=== PATIENT | male | born 1985 | race Caucasian/White ===

== ENCOUNTER 2018-11-07 16:00 | Emergency (ER) | payer BC, MEDICAID, SELFPAY ==
[2018-11-07 18:16] VITALS: PULSE 80
--- NOTE | 2018-11-07 18:28 | ERPHSYRPT ---
- History of Present Illness Time Seen by Provider: 11/07/18 17:40 Source: patient Exam Limitations: no limitations Patient Subjective Stated Complaint: pt states he was working on a vehicle and he thinks the frame cut his r arm Triage Nursing Assessment: pt a&o x3. skin w/d/p. pt has laceration to r elbow. csm x4. bleeding controlled Physician History: 33 y/o right handed white male presents with accidental laceration to right elbow. 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 pts tetanus 2015. Timing/Duration: today Quality: painful Severity: mild Location: extremities (right elbow) Associated Symptoms: denies symptoms Allergies/Adverse Reactions: No Known Drug Allergies Allergy (Unverified 03/19/13 01:34) Home Medications: Clonazepam 0.5 mg [Klonopin 0.5 MG] 1 mg PO BID 03/19/13 [History] Quetiapine Fumarate 100 mg [Seroquel 100 MG] 40 mg PO DAILY 03/19/13 [ History] Hx Tetanus, Diphtheria Vaccination/Date Given: (unsure) Hx Influenza Vaccination/Date Given: No Hx Pneumococcal Vaccination/Date Given: No Immunizations Up to Date: (unsure) - Review of Systems Constitutional: No Symptoms Eyes: No Symptoms Ears, Nose, & Throat: No Symptoms Respiratory: No Symptoms Cardiac: No Symptoms Abdominal/Gastrointestinal: No Symptoms Genitourinary Symptoms: No Symptoms Musculoskeletal: No Symptoms Skin: Other (laceration right elbow) Neurological: No Symptoms Psychological: No Symptoms Endocrine: No Symptoms Hematologic/Lymphatic: No Symptoms Immunological/Allergic: No Symptoms All Other Systems: Reviewed and Negative - Past Medical History Pertinent Past Medical History: Yes Neurological History: No Pertinent History ENT History: No Pertinent History Cardiac History: No Pertinent History Respiratory History: No Pertinent History Endocrine Medical History: No Pertinent History Musculoskeletal History: No Pertinent History GI Medical History: No Pertinent History History: No Pertinent History Psycho-Social History: Anxiety, Bipolar Male Reproductive Disorders: No Pertinent History - Past Surgical History Past Surgical History: Yes Neuro Surgical History: No Pertinent History Cardiac: No Pertinent History Respiratory: No Pertinent History Gastrointestinal: No Pertinent History Genitourinary: No Pertinent History Musculoskeletal: No Pertinent History Male Surgical History: No Pertinent History Other Surgical History: TONSILS - Social History Smoking Status: Current every day smoker How long have you smoked: 16 Exposure to second hand smoke: Yes Drug Use: marijuana Patient Lives Alone: Yes - Nursing Vital Signs Nursing Vital Signs: Initial Vital Signs Temperature 97.8 F 11/07/18 16:13 Pulse Rate 87 11/07/18 16:13 Respiratory Rate 18 11/07/18 16:13 Blood Pressure 149/62 11/07/18 16:13 O2 Sat by Pulse Oximetry 96 11/07/18 16:13 Pain Scale Pain Intensity 2 - Physical Exam General Appearance: no apparent distress, alert, anxiety Eye Exam: PERRL/EOMI, eyes nml inspection Ears, Nose, Throat Exam: normal ENT inspection, moist mucous membranes Neck Exam: normal inspection, non-tender, supple, full range of motion Respiratory Exam: No chest tenderness Gastrointestinal/Abdomen Exam: No tenderness Rectal Exam: not done Back Exam: normal inspection, normal range of motion, No CVA tenderness, No vertebral tenderness Extremity Exam: normal range of motion, pelvis stable, lacerations (right elbow 3.5 cm no fb, no active bleeding. ), tenderness, other (from) Neurologic Exam: alert, oriented x 3, cooperative, regional coordinator II-XII nml as tested Skin Exam: laceration (see above) Lymphatic Exam: No adenopathy SpO2 Interpretation: normal SpO2: 99 O2 Delivery: Room Air Procedures - Laceration/Wound Repair Right Lateral Proximal Elbow Wound Location: Right, upper arm (elbow) Wound Length (cm): 3.5 Wound's Depth, Shape: superficial Wound Explored: clean Irrigated: Yes Hibiclens Prep: Yes Wound Repaired With: Roldan Number of Sutures: 6 Sterile Dressing Applied?: Yes Progress: 11/07/18 18:28 pt kanu well. no complications - Course Nursing assessment & vital signs reviewed: Yes Ordered Tests: Active Orders 24 hr Category Date Time Status Wound Care STAT Care 11/07/18 18:19 Active Wound Care STAT Care 11/07/18 18:20 Active Medication Summary Discontinued Medications Generic Name Dose Route Start Last Admin Trade Name Freq PRN Reason Stop Dose Admin Bacitracin Zinc 0.9 gm 11/07/18 18:19 Baciguent Packet TP 11/07/18 18:20 STAT ONE Cephalexin HCl 500 mg 11/07/18 18:19 Keflex 500 Mg PO 08/15/19 18:20 STAT ONE - Progress Progress: improved, pain not gone completely, re-examined Counseled pt/family regarding: diagnosis, need for follow-up - Departure Departure Disposition: Home Clinical Impression: Laceration of right elbow Condition: Stable Critical Care Time: No Referrals: EDUARDO HERNANDEZ [Primary Care Provider] - Additional Instructions: keep site clean and dry for 24 hours. after 24 hours, wash daily with soap and water and cover with antibiotic ointment and bandaid. staple removal in 8 to 10 days. Prescriptions: Cephalexin Mh 500 mg [Keflex 500 mg] 500 mg PO TID #21 capsule
[2018-11-07] MEDS ORDERED: BACIGUENT PACKET ONE (18:32)
[2018-11-07] MEDS ORDERED: KEFLEX 500 MG ONE (18:33)
[2018-11-07] MEDS: BACIGUENT PACKET TP ONE (18:39)
[2018-11-07] MEDS: KEFLEX 500 MG PO ONE (18:39)
[2018-11-07 18:53] VITALS: BP 116/64; O2SAT 96
== END 2018-11-07 18:46 | disposition home or self-care (01) ==
LOC: ED 16:00
DX: S51.011A Laceration without foreign body of right elbow, initial encounter (principal); W26.8XXA Contact with other sharp object(s), not elsewhere classified, initial encounter
CPT/HCPCS: 12002; 99283; A9270-GY